=== PATIENT | male | born 2000 | race Two or more races ===

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

== ENCOUNTER 2025-02-07 20:05 | Emergency (ER) | payer MEDICAID ==
[~2025-02-07] VITALS: Ht 182.9 cm; Wt 77.1 kg
[2025-02-07 20:17] VITALS: BP 156/78
[2025-02-07 20:50] VITALS: BP 145/70; TEMP 98; O2SAT 99
== END 2025-02-07 20:52 | disposition home or self-care (01) ==
LOC: ER 20:05
DX: N52.9 Male erectile dysfunction, unspecified (principal); F12.90 Cannabis use, unspecified, uncomplicated
CPT/HCPCS: A4606; A4663